=== PATIENT | male | born 1975 | race Caucasian/White ===

== ENCOUNTER 2024-05-04 06:23 | Day surgery (SDC) | payer OTHER, SELFPAY | END 2024-05-04 14:45 | disposition home or self-care (01) | LOC: GI 06:23 | PROVIDERS: ATTENDING PHYSICIAN Internal Medicine Gastroenterology | DX: Z12.11 Encounter for screening for malignant neoplasm of colon (principal); D12.5 Benign neoplasm of sigmoid colon; D12.8 Benign neoplasm of rectum; K57.30 Diverticulosis of large intestine without perforation or abscess without bleeding; K64.8 Other hemorrhoids; K29.50 Unspecified chronic gastritis without bleeding; K20.90 Esophagitis, unspecified without bleeding; Z83.719 Family history of colon polyps, unspecified | CPT/HCPCS: 45385; 45380; 88305; 88342 ==

== ENCOUNTER 2024-10-15 06:24 | Day surgery (SDC) | payer OTHER, SELFPAY | END 2024-10-15 09:55 | disposition home or self-care (01) | LOC: GI 06:24 | PROVIDERS: ATTENDING PHYSICIAN Internal Medicine Gastroenterology | DX: K21.9 Gastro-esophageal reflux disease without esophagitis (principal) | CPT/HCPCS: 43235 ==